=== PATIENT | male | born 1980 | race Caucasian/White ===

== ENCOUNTER 2017-07-17 22:17 | Emergency (ER) | payer SELFPAY ==
[~2017-07-17] VITALS: Ht 175.3 cm; Wt 77.1 kg
--- NOTE | 2017-07-17 22:37 | NUR ---
Patient does not wish to proceed with medical care recommended by Dr. Hardy. Patient given information related to possible complications, up to and including , which could occur as a result of leaving the hospital at this time. Patient verbalizes understanding of risks involved due to leaving against medical advice. Patient has signed AMA form. Patient is ambulatory with a steady gait. VSS.
== END 2017-07-17 22:37 | disposition left against medical advice (07) ==
LOC: ER 22:23
DX: S09.8XXA Other specified injuries of head, initial encounter (principal); F10.129 Alcohol abuse with intoxication, unspecified; X58.XXXA Exposure to other specified factors, initial encounter; Y93.89 Activity, other specified; Y92.89 Other specified places as the place of occurrence of the external cause; Y99.8 Other external cause status
CPT/HCPCS: 99283; A4606; Z7610